=== PATIENT | male | born 1975 | race Caucasian/White ===

== ENCOUNTER → 2017-11-11 | Outpatient (CLI) | payer BC ==
--- NOTE | 2017-11-12 07:58 | EST ---
EXERCISE STRESS DATE OF SERVICE: 11/11/2017 AGE: 42 SEX: Male HT: 72" WT: 238 pounds PROTOCOL: Bob STAGE: II DURATION OF EXERCISE: 8 minutes 30 seconds HEART RATE REST: 75 BLOOD PRESSURE REST: 131/92 MAXIMUM HEART RATE ACHIEVED: 157 MAXIMUM BLOOD PRESSURE: 161/81 85% MPHR: 150 100% MPHR: 176 METS: 10.3 INDICATION OF THE STUDY: Chest discomfort. CLINICAL INFORMATION: STRESS DATA: Pretesting physical examination showed heart rate of 75, pressure is 131/92 mmHg. Baseline EKG showed sinus mechanism. The patient exercised on the treadmill according to Bob protocol for a total of 8 minutes and 30 seconds and achieved 10.3 METs. Max heart rate was 157, which is about 89% of maximum predicted heart rate. Maximum blood pressure was 161/81 mmHg. Clinically, the patient did not have any chest pain or chest discomfort during the testing or on recovery. At peak exercise, the patient went into left bundle branch block. CONCLUSION: 1. Excellent exercise tolerance. 2. The patient did not have any symptoms of chest discomfort in response to exercise. 3. The EKG is nondiagnostic because the patient did go to bundle branch block at the peak exercise. 4. Different modality of stress test is recommended to evaluate for ischemia. MMODL / IJN: [id number] /
== END | disposition home or self-care (01) ==
LOC: RADNMMAIN 10:44
PROVIDERS: ATTEND Family Medicine
DX: R94.31 Abnormal electrocardiogram [ECG] [EKG] (principal)
CPT/HCPCS: 93017

== ENCOUNTER 2020-01-09 14:00 | Emergency (ER) | payer BC ==
[2020-01-09 14:06] VITALS: TEMP 98.7
--- NOTE | 2020-01-09 14:54 | XR ---
EXAMINATION TYPE: XR chest 2V DATE OF EXAM: 01/09/2020 COMPARISON: None HISTORY: 84-year-old male fall, contusion TECHNIQUE: PA and lateral views FINDINGS: Heart normal size. Aorta within normal limits. Mild interstitial prominence has a chronic appearance. Some strandy atelectasis in the lower lungs. No consolidation, pneumothorax, or pleural effusion. IMPRESSION: Some strandy lower lung atelectasis. Other chronic appearing changes. No acute process seen.
--- NOTE | 2020-01-09 15:08 | ED ---
Head Injury HPI - General Chief complaint: Head Injury Stated complaint: Fell through the deck Time Seen by Provider: 01/09/20 14:15 Source: patient Mode of arrival: ambulatory Limitations: no limitations - History of Present Illness Initial comments: Patient is a 44-year-old male presenting to the emergency department after a fall injury. Patient states he was working on his deck and missed a step and when he fell forward, he hit his forehead on a piece of deck resulting in a laceration. Patient also hit his chest on a piece of deckboard as well. He is also complaining of right lower leg pain and left inner knee pain. Patient states he did not lose consciousness. His tetanus vaccine is up-to-date. He is not dizzy, denies nausea or vomiting. Denies being on a blood thinner. He states he is able to ambulate with only some soreness of his right lower leg. Patient denies any abdominal pain, shortness of breath. He does have a small am ount of pain with a deep breath on the front of his chest. He has no further complaints at this time. Upon arrival to the ER, his vitals are stable. - Related Data Home Medications Medication Instructions Recorded Confirmed Esomeprazole Magnesium [NexIUM] 40 mg PO DAILY 12/30/13 01/09/20 Allopurinol [Zyloprim] 300 mg PO DAILY 01/09/20 01/09/20 Allergies/Adverse reactions: Allergies Allergy/AdvReac Type Severity Reaction Status Date / Time No Known Allergies Allergy Verified 01/09/20 14:55 Review of Systems ROS Statement: Those systems with pertinent positive or pertinent negative responses have been documented in the HPI. ROS Other: All systems not noted in ROS Statement are negative. Past Medical History Past Medical History: GERD/Reflux Additional Past Medical History / Comment(s): gout, hiatal hernia, migraines History of Any Multi-Drug Resistant Organisms: None Reported Past Surgical History: Orthopedic Surgery Additional Past Surgical History / Comment(s): left ankle surgery Past Anesthesia/Blood Transfusion Reactions: No Reported Reaction Past Alcohol Use History: Occasional Past Drug Use History: None Reported General Exam - General Exam Comments Initial Comments: GENERAL: Patient is well-developed and well-nourished. Patient is nontoxic and in no acute distress. HEAD: Atraumatic, normocephalic. EYES: Pupils equal round and reactive to light, extraocular movements intact, sclera anicteric, conjunctiva are normal. Eyelids were unremarkable. ENT: TMs normal, nares patent, oropharynx clear without exudates. Moist mucous membranes. NECK: Normal range of motion, supple without lymphadenopathy or JVD. LUNGS: Unlabored respirations. Breath sounds clear to auscultation bilaterally and equal. No wheezes rales or rhonchi. Mild pain with palpation of the anterior chest wall. Patient has a mild abrasion to this area as well. HEART: Regular rate and rhythm without murmurs, rubs or gallops. ABDOMEN: Soft, nontender, normoactive bowel sounds. No guarding, no rebound. No masses appreciated. : Deferred MUSCULOSKELETAL: Normal extremities with adequate strength and normal range of motion, no pitting or edema. No clubbing or cyanosis. There are contusions to the left medial knee, right lower leg. NEUROLOGICAL: Patient is alert and oriented x 3. Motor and sensory are also intact. Cranial nerves II through XII grossly intact. Normal speech, normal gait. Symmetrical smile. PSYCH: Normal mood, normal affect. SKIN: Warm, Dry, normal turgor, no rashes. Patient has a 3 cm laceration to the right forehead. Bleeding is controlled. Limitations: no limitations Course Vital Signs 01/09/20 01/09/20 14:02 16:36 Temperature 98.7 F Pulse Rate 64 70 Respiratory 18 16 Rate Blood Pressure 118/71 132/78 O2 Sat by Pulse 98 97 Oximetry Procedures - Laceration Laceration #1 Consent Obtained: verbal consent Indication: laceration Site: face (left Forehead) Size (cm): 3 Description: linear Depth: simple, single layer Anesthetic Used: lidocaine 1% Anesthesia Technique: local infiltration Amount (mls): 6 Pre-repair: irrigated extensively Type of Sutures: nylon, vicryl Size of Sutures: 3-0, 5-0 Number of Sutures: 10 (2 Vicryl, 8 nylon sutures) Technique: simple, interrupted, horizontal mattress (With subcu sutures) Patient Tolerated Procedure: well Additional Comments: 2, 3-0 Vicryl subcu, internal sutures were used as well as 8 nylon external sutures. Medical Decision Making - Medical Decision Making Patient is a 44-year-old male here after fall injury resulting in a 3 cm laceration to the left forehead. Patient did not lose consciousness. His tetanus vaccine is up-to-date. His neuro exam is normal, no neuro deficits. Denies current contusion to the left medial knee, right lower leg as well as the anterior portion of his chest. Chest x-ray shows no acute findings, no fractu res. Patient's wound was irrigated, closed with 2 internal Vicryl sutures as well as 8 external 5-0 nylon sutures. Patient tolerated procedure well. He will have sutures removed in 7-10 days. Patient can take Tylenol Motrin for discomfort as well as ice to his contusions. Return parameters were discussed with the patient he verbalizes understanding. Case discussed with Dr. Chand. Disposition Clinical Impression: Fall, Laceration of forehead, Contusion of chest wall, Contusion of left knee Disposition: HOME SELF-CARE Condition: Stable Instructions (If sedation given, give patient instructions): Care For Your Stitches (ED), Contusion in Adults (ED) Additional Instructions: Please return to the Emergency Department if symptoms worsen or any other concerns. Keep area clean and dry. Do not swim in pools, lakes. Sutures need to be removed in approximately 7-10 days. Take Tylenol and/or Motrin for discomfort. Apply ice to bruises. Is patient prescribed a controlled substance at d/c from ED?: No Referrals: Justin Fields MD [Primary Care Provider] - 1-2 days
[2020-01-09] MEDS: LIDOCAINE 1% INJ 10MG/ML (20 ML MDV) SQ ONE ×2 (16:09→16:22)
[2020-01-09 16:37] VITALS: BP 132/78; PULSE 70; RESP 16
== END 2020-01-09 16:12 | disposition home or self-care (01) ==
LOC: EC 14:00
DX: S01.81XA Laceration without foreign body of other part of head, initial encounter (principal); S20.219A Contusion of unspecified front wall of thorax, initial encounter; S80.02XA Contusion of left knee, initial encounter; K21.9 Gastro-esophageal reflux disease without esophagitis; M10.9 Gout, unspecified; Z79.899 Other long term (current) drug therapy; W10.9XXA Fall (on) (from) unspecified stairs and steps, initial encounter; Y93.89 Activity, other specified
CPT/HCPCS: 99283; 12013; 71046; J2001

== ENCOUNTER 2023-07-12 12:57 | Day surgery (SDC) | payer BC ==
[2023-07-09 09:53] VITALS: BMI 32.8
[~2023-07-12 12:57] MED LIST: LACTATED RINGERS 1,000 ML IV SCH; LIDOCAINE 1% (10MG/ML) FOR IV START INTRADERMA PRN
[2023-07-12 13:45] VITALS: TEMP 97
[2023-07-12] MEDS ORDERED: PROPOFOL 10 MG/ML 20 ML VIAL IV ONE (14:31)
--- NOTE | 2023-07-12 14:51 | P.PCN ---
Date of Procedure: 07/12/23 Procedure(s) Performed: BRIEF HISTORY: Patient is a 48-year-old pleasant white male scheduled for an elective colonoscopy as a part of screening for colon cancer and family history of colon cancer. His father was diagnosed with colon cancer at age 70. PROCEDURE PERFORMED: Colonoscopy with biopsy. PREOPERATIVE DIAGNOSIS: Screening for colon cancer and family history of colon cancer. IV sedation per Anesthesia. PROCEDURE: After informed consent was obtained, the patient, was brought into the endoscopy unit. IV sedation was administered by Anesthesia under continuous monitoring. Digital rectal examination was normal. Initially the Olympus CF-160 flexible video colonoscope was then inserted in the rectum, gradually advanced into the cecum without any difficulty. Careful examination was performed as the scope was gradually being withdrawn. Ileocecal valve and the appendiceal orifice were visualized and appeared normal. Prep was excellent. Mucosa of the cecum a minute a polyp that was removed by cold biopsy. Rest of the, ascending colon, transverse colon, descending colon, sigmoid colon, and rectum appeared normal. Retroflexion was performed in the rectum and no lesions were seen. The patient tolerated the procedure well. IMPRESSION: 3 mm cecal polyp status post cold biopsy Rest of the colon appeared normal RECOMMENDATIONS: Findings of this examination were discussed with the patient as well as his family. He was advised to follow with the biopsy results and have a repeat screening colonoscopy every 5 years because of the family history of colon cancer
[2023-07-12 15:22] VITALS: BP 125/81; PULSE 65; RESP 14
== END 2023-07-12 15:31 | disposition home or self-care (01) ==
LOC: ORWHC2ENDO 12:57
PROVIDERS: ATTEND Internal Medicine Gastroenterology
DX: Z12.11 Encounter for screening for malignant neoplasm of colon (principal); K63.5 Polyp of colon; F17.200 Nicotine dependence, unspecified, uncomplicated; E78.5 Hyperlipidemia, unspecified; K21.9 Gastro-esophageal reflux disease without esophagitis; Z79.899 Other long term (current) drug therapy; Z86.010 Personal history of colon polyps; Z80.0 Family history of malignant neoplasm of digestive organs
CPT/HCPCS: 45380; 88305; J2704